=== PATIENT | female | born 1975 | race Caucasian/White ===

== ENCOUNTER 2017-11-30 07:45 | Day surgery (SDC) | payer MEDICAID ==
[~2017-11-30 07:45] MED LIST: CEFAZOLIN 1 GM INJ; CEFAZOLIN 2 GM/50 ML (PMX) 50 ML IVPB; LIDOCAINE 100 MG SYRINGE; SOD CHLORIDE 0.9% 1,000 ML IV
[2017-11-30 11:32] LABS: ADD MAN DIFF? NO
[2017-11-30 11:36] LABS: BASOPHIL # 0.1 10^3/ul (0.0-0.1); BASOPHILS % 0.7 % (0.0-2.0); EOSINOPHILS # 0.3 10^3/ul (0.0-0.5); HEMATOCRIT 33.9 % (37.0-47.0); HEMOGLOBIN 10.6 g/dl (12.0-16.0); LYMPHOCYTES # 3.2 10^3/ul (0.8-2.9); LYMPHOCYTES % 34.5 % (15.0-51.0); MEAN CORPUSCULAR HEMOGLOBIN 24.5 pg (29.0-33.0); MEAN CORPUSCULAR HGB CONC 31.3 g/dl (32.0-37.0); MEAN CORPUSCULAR VOLUME 78.3 fl (82.0-101.0); MEAN PLATELET VOLUME 9.9 fl (7.4-10.4); MONOCYTE # 0.9 10^3/ul (0.3-0.9); MONOCYTES % 9.6 % (0.0-11.0); NEUTROPHIL # 4.8 10^3/ul (1.6-7.5); PLATELET COUNT 345 10^3/UL (140-415); RED BLOOD COUNT 4.33 10^6/ul (4.20-5.40); RED CELL DISTRIBUTION WIDTH 17.2 % (11.5-14.5)
[2017-11-30 11:36] LABS: WHITE BLOOD COUNT 9.1 10^3/ul (4.8-10.8)
[2017-11-30 11:46] LABS: INR 0.96; PROTIME 12.9 Sec (11.9-14.9)
[2017-11-30 11:47] LABS: PARTIAL THROMBOPLASTIN TIME 29.2 Sec (25.0-35.0)
[2017-11-30 12:00] LABS: ALANINE AMINOTRANSFERASE 27 IU/L (13-69); ALBUMIN 4.1 g/dl (3.3-4.9); ALBUMIN/GLOBULIN RATIO 1.13; ALKALINE PHOSPHATASE 92 IU/L (42-121); ANION GAP 14 (8-16); ASPARTATE AMINO TRANSFERASE 24 IU/L (15-46); BILIRUBIN,INDIRECT 0.1 mg/dl (0-1.1); BILIRUBIN,TOTAL 0.1 mg/dl (0.2-1.3); CARBON DIOXIDE 24 mmol/L (21-31); CHLORIDE 106 mmol/L (97-110); GLUCOSE 84 mg/dl (70-220); TOTAL PROTEIN 7.7 g/dl (6.1-8.1)
[2017-11-30 12:04] LABS: BLOOD UREA NITROGEN 8 mg/dl (7-20); CREATININE 0.63 mg/dl (0.44-1.00); POTASSIUM 3.7 mmol/L (3.5-5.1); SODIUM 140 mmol/L (135-144)
[2017-11-30] MEDS ORDERED: FENTAnyl 50 MCG/ML VIAL (14:21)
[2017-11-30] MEDS ORDERED: MIDAZOLAM 1 MG/ML 2 ML INJ (14:21)
[2017-11-30] MEDS ORDERED: PROPOFOL 20 ML (14:22)
[2017-11-30] MEDS ORDERED: ONDANSETRON 4 MG INJ (14:23)
[2017-11-30] MEDS ORDERED: METOCLOPRAMIDE 10 MG INJ (14:23)
[2017-11-30] MEDS ORDERED: LIDOCAINE 1% (MPF) 30 ML INJ (14:59)
[2017-11-30] MEDS ORDERED: HYDROmorphONE (0.2 MG/ML) 10ML SYG IV (15:00)
[2017-11-30] MEDS ORDERED: FENTAnyl 50 MCG/ML VIAL IV ×2 (15:00)
[2017-11-30] MEDS ORDERED: METOCLOPRAMIDE 10 MG INJ IV (15:00)
[2017-11-30] MEDS ORDERED: hydrALAzine 20 MG INJ IV (15:00)
[2017-11-30] MEDS ORDERED: EPHEDrine SULFATE 50 MG/5 ML SYG IV (15:00)
[2017-11-30] MEDS ORDERED: LABETALOL HCL 20MG INJ IV (15:00)
[2017-11-30] MEDS ORDERED: KETOROLAC 15 MG INJ IV (15:00)
[2017-11-30] MEDS: LIDOCAINE 1%/EPI 30 ML INJ INJ (15:31)
[2017-11-30] MEDS ORDERED: HYDROCODONE/APAP (7.5/325) TAB PO (16:00)
[2017-11-30] MEDS: HYDROmorphONE (0.2 MG/ML) 10ML SYG IV ×2 (16:12→16:18)
[2017-11-30] MEDS: ONDANSETRON 4 MG INJ IV (16:12)
== END 2017-11-30 17:07 | disposition home or self-care (01) ==
LOC: SDS 07:45
DX: D24.2 Benign neoplasm of left breast (principal)
CPT/HCPCS: 19301; 80053; 85025; 85610; 85730; 88307

== ENCOUNTER 2018-10-12 19:55 | Emergency (ER) | payer MEDICAID ==
[2018-10-12 20:48] LABS: ADD MAN DIFF? NO
[2018-10-12 20:49] LABS: BASOPHIL # 0.1 10^3/ul (0.0-0.1); BASOPHILS % 0.5 % (0.0-2.0); EOSINOPHILS # 0.4 10^3/ul (0.0-0.5); EOSINOPHILS % 3.5 % (0.0-7.0); HEMATOCRIT 33.9 % (37.0-47.0); HEMOGLOBIN 10.6 g/dl (12.0-16.0); LYMPHOCYTES # 4.1 10^3/ul (0.8-2.9); LYMPHOCYTES % 37.3 % (15.0-51.0); MEAN CORPUSCULAR HEMOGLOBIN 25.6 pg (29.0-33.0); MEAN CORPUSCULAR HGB CONC 31.3 g/dl (32.0-37.0); MEAN CORPUSCULAR VOLUME 81.9 fl (82.0-101.0); MEAN PLATELET VOLUME 9.6 fl (7.4-10.4); MONOCYTES % 8.8 % (0.0-11.0); NEUTROPHIL # 5.5 10^3/ul (1.6-7.5); NEUTROPHILS % 49.6 % (39.0-77.0); PLATELET COUNT 374 10^3/UL (140-415); RED BLOOD COUNT 4.14 10^6/ul (4.20-5.40); RED CELL DISTRIBUTION WIDTH 16.3 % (11.5-14.5)
[2018-10-12 20:50] LABS: ADD UMIC YES; UR ASCORBIC ACID NEGATIVE (NEGATIVE); UR BACTERIA FEW /HPF (NONE SEEN); UR BILIRUBIN (Dip) NEGATIVE (NEGATIVE); UR BLOOD (Dip) NEGATIVE (NEGATIVE); UR CLARITY SLIGHTLY CLOUDY (CLEAR); UR COLOR STRAW (YELLOW); UR GLUCOSE (Dip) NEGATIVE (NEGATIVE); UR KETONES (Dip) NEGATIVE (NEGATIVE); UR LEUKOCYTE ESTERASE (Dip) 3+ Leu/ul (NEGATIVE); UR NITRITE (Dip) NEGATIVE (NEGATIVE); UR RBC 3 /HPF (0-5); UR SPECIFIC GRAVITY (Dip) 1.008 (1.003-1.030); UR SQUAMOUS EPITHELIAL CELL FEW /HPF (FEW); UR TOTAL PROTEIN (Dip) NEGATIVE (NEGATIVE); UR UROBILINOGEN (Dip) NEGATIVE (NEGATIVE); UR WBC 17 /HPF (0-5)
[2018-10-12 21:06] LABS: ALANINE AMINOTRANSFERASE 21 IU/L (13-69); ALBUMIN 4.4 g/dl (3.3-4.9); ALBUMIN/GLOBULIN RATIO 1.25; ALKALINE PHOSPHATASE 92 IU/L (42-121); AMYLASE 87 U/L (11-123); ANION GAP 9 (5-13); ASPARTATE AMINO TRANSFERASE 21 IU/L (15-46); BILIRUBIN,INDIRECT 0.1 mg/dl (0-1.1); BILIRUBIN,TOTAL 0.1 mg/dl (0.2-1.3); BLOOD UREA NITROGEN 13 mg/dl (7-20); CALCIUM 9.1 mg/dl (8.4-10.2); CARBON DIOXIDE 30 mmol/L (21-31); CHLORIDE 103 mmol/L (97-110); CREATININE 0.64 mg/dl (0.44-1.00); Estimated GFR > 60 mL/min (>60); GLUCOSE 99 mg/dl (70-220); LIPASE 280 U/L (23-300); POTASSIUM 4.1 mmol/L (3.5-5.1); SODIUM 142 mmol/L (135-144); TOTAL PROTEIN 7.9 g/dl (6.1-8.1)
[2018-10-12] MEDS: KETOROLAC 30 MG INJ IV (21:14)
[2018-10-12] MEDS: ONDANSETRON 4 MG INJ IV (21:14)
[2018-10-12] MEDS: SOD CHLORIDE 0.9% 1,000 ML IV (21:14)
== END 2018-10-12 23:18 | disposition home or self-care (01) ==
LOC: FTE 19:55
DX: N39.0 Urinary tract infection, site not specified (principal)
CPT/HCPCS: 76775; 80053; 81001; 82150; 83690; 84703; 85025; 87086; 96374; 96375; 99285-25